=== PATIENT | female | born 1935 | race Caucasian/White ===

== ENCOUNTER 2017-12-28 11:51 | Emergency (ER) | payer OTHER, MEDICARE ==
[~2017-12-28] VITALS: Ht 157.5 cm; Wt 88.6 kg
[~2017-12-28 11:51] MED LIST: ACID REDUCER75 MG PO; ANASTROZOLE1 MG PO; APRISO0.375 GM PO; ARIMIDEX1 MG PO; ASPIR 8181 M1 PO; ATORVASTATIN CA20 MG PO; CENTRUM SILVER1 EAC3 PO; FISH OIL 1,0001 EAC7 PO; FISH OIL 1,2001 EAC4 PO; HYDROCHLOROTHIA25 MG PO; K-DUR10 MEQ PO; LEVOFLOXACIN750 MG PO; LOSARTAN POTASS25 MG PO; MUCINEX600 MG PO; POTASSIUM CHLO10 ME3 PO; PREDNISONE10 MG PO; PROVENTIL HFA6.7 GM IH; SERTRALINE HCL100 MG PO
[2017-12-28 12:38] LABS: BASOPHIL (%) 0.5 % (0-1); EOSINOPHIL (%) 1.3 % (0-5); EOSINOPHIL COUNT 0.1 K/uL (0-0.3); HEMOGLOBIN 11.6 G/DL (11.9-15.5); IMMATURE GRANULOCYTE (%) 0.5 % (0.0-0.7); LYMPHOCYTE (%) 17.2 % (15-42); LYMPHOCYTE COUNT 0.7 K/uL (1.0-2.8); MCH 34.2 PG (29.0-34.0); MCHC 35.2 G/DL (30.0-36.0); MCV 97.3 FL (83-99); MONOCYTE (%) 18.2 % (3-12); MONOCYTE COUNT 0.7 K/uL (0-0.8); NEUTROPHIL (%) 62.3 % (45-76); NEUTROPHIL COUNT 2.5 K/uL (1.8-6.4); PLATELET COUNT 78 K/uL (156-360); RBC DIS.WIDTH-CV 14.3 % (11.8-14.6); RED BLOOD COUNT 3.39 M/uL (3.80-5.20)
[2017-12-28 12:46] LABS: ALBUMIN 2.8 g/dL (3.2-4.8)
[2017-12-28 12:47] LABS: CHLORIDE 102 mEq/L (99-109); SODIUM 143 mEq/L (136-147)
[2017-12-28 12:49] LABS: GLUCOSE 139 mg/dL (70-99); POTASSIUM 3.5 mEq/L (3.7-5.4); TOTAL PROTEIN 5.5 g/dL (6.4-8.3)
[2017-12-28 12:52] LABS: ALKALINE PHOSPHATASE 178 IU/L (3-129)
[2017-12-28 12:53] LABS: CREATININE 0.7 mg/dL (0.6-1.3); GFR ESTIMATE (CALCULATED) > 59 mL/min/
[2017-12-28 12:54] LABS: AST (GOT) 60 IU/L (2-34); UREA NITROGEN (BUN) 10 mg/dL (9-23)
[2017-12-28 12:55] LABS: ALT (GPT) 38 IU/L (3-49)
[2017-12-28 14:57] LABS: APPEARANCE SL.HAZY ((CLEAR)); BILIRUBIN NEGATIVE; BLOOD NEGATIVE; COLOR YELLOW ((YELLOW)); GLUCOSE (STRIP) NEGATIVE; KETONES NEGATIVE; LEUKOCYTES LARGE; NITRITE POSITIVE; PROTEIN (STRIP) NEGATIVE; SPECIFIC GRAVITY 1.005 (1.000-1.030)
[2017-12-28 15:12] LABS: BACTERIA 1+ /HPF; EPITHELIAL CELLS RARE /HPF; HYALINE CASTS 0-5 /LPF; MUCUS NONE SEEN /LPF; UCUL ADDED? YES; WHITE BLOOD CELLS TNTC /HPF (0-5)
[2017-12-28] MEDS ORDERED: CIPRO500 MG PO (15:17)
[2017-12-28 15:26] VITALS: BP 115/57
== END 2017-12-28 15:49 | disposition home or self-care (01) ==
LOC: EME 11:51
PROVIDERS: Emergency Medicine
DX: N39.0 Urinary tract infection, site not specified (principal); I10 Essential (primary) hypertension; K21.9 Gastro-esophageal reflux disease without esophagitis; Z85.3 Personal history of malignant neoplasm of breast; Z90.11 Acquired absence of right breast and nipple; Z87.891 Personal history of nicotine dependence
CPT/HCPCS: 70450; 71045; 80053; 81003; 82140; 85025; 87077; 87086; 87186; 93005; 99281; 99285

== ENCOUNTER 2018-02-04 19:25 | Inpatient (IN) | payer OTHER, MEDICARE ==
[~2018-02-04] VITALS: Ht 157.5 cm; Wt 78.5 kg
[~2018-02-04 19:25] MED LIST changes: +CIPRO500 MG PO; +KLOR-CON M2020 MEQ PO; -POTASSIUM CHLO10 ME3 PO
[2018-02-04 21:08] LABS: HEMATOCRIT 44.1 % (36.0-46.0); HEMOGLOBIN 16.2 G/DL (11.9-15.5); MCH 34.1 PG (29.0-34.0); MCHC 36.7 G/DL (30.0-36.0); MCV 92.8 FL (83-99); PLATELET COUNT 212 K/uL (156-360); RBC DIS.WIDTH-CV 13.6 % (11.8-14.6); RBC DIS.WIDTH-SD 46.4 % (39-53); RED BLOOD COUNT 4.75 M/uL (3.80-5.20); WHITE BLOOD COUNT 12.6 K/uL (4.1-10.2)
[2018-02-04 21:17] LABS: ALBUMIN 3.7 g/dL (3.2-4.8); CHLORIDE 89 mEq/L (99-109); POTASSIUM 5.2 mEq/L (3.7-5.4)
[2018-02-04 21:18] LABS: SODIUM 124 mEq/L (136-147)
[2018-02-04 21:20] LABS: GLUCOSE 113 mg/dL (70-99)
[2018-02-04 21:22] LABS: TOTAL BILIRUBIN 4.1 mg/dL (0.0-1.0)
[2018-02-04 21:23] LABS: ALKALINE PHOSPHATASE 229 IU/L (3-129)
[2018-02-04 21:24] LABS: GFR ESTIMATE (CALCULATED) 57 mL/min/
[2018-02-04 21:25] LABS: AST (GOT) 82 IU/L (2-34); UREA NITROGEN (BUN) 19 mg/dL (9-23)
[2018-02-04 21:26] LABS: ALT (GPT) 72 IU/L (3-49)
[2018-02-04 21:27] LABS: CREATINE KINASE 388 IU/L (1-294)
[2018-02-04 21:29] LABS: TROP-I INTERPRETATION NEGATIVE; TROPONIN-I 0.03 ng/mL (0.0-0.30)
[2018-02-04 22:16] LABS: APPEARANCE CLEAR ((CLEAR)); BILIRUBIN NEGATIVE; BLOOD NEGATIVE; COLOR STRAW ((YELLOW)); GLUCOSE (STRIP) NEGATIVE; KETONES NEGATIVE; LEUKOCYTES NEGATIVE; NITRITE NEGATIVE; PROTEIN (STRIP) NEGATIVE; SPECIFIC GRAVITY 1.008 (1.000-1.030); UROBILINOGEN 0.2 MG/DL (0.2-1.0)
[2018-02-05] MEDS ORDERED: CENTRUM SILVER1 EAC3 PO (01:18)
[2018-02-05] MEDS ORDERED: FLONASE16 G1 BOTH NARES (01:18)
[2018-02-05] MEDS ORDERED: FUROSEMIDE80 MG PO (01:18)
[2018-02-05] MEDS ORDERED: ALDACTONE100 MG PO ×2 (01:20→12:24)
[2018-02-05] MEDS ORDERED: EFFEXOR XR75 MG PO (01:20)
[2018-02-05 05:36] VITALS: BP 127/72
[2018-02-05 06:24] LABS: TROP-I INTERPRETATION NEGATIVE; TROPONIN-I 0.05 ng/mL (0.0-0.30)
[2018-02-05 06:39] LABS: APPEARANCE SL.HAZY ((CLEAR)); BILIRUBIN NEGATIVE; BLOOD NEGATIVE; COLOR YELLOW ((YELLOW)); GLUCOSE (STRIP) NEGATIVE; KETONES NEGATIVE; LEUKOCYTES NEGATIVE; NITRITE NEGATIVE; PROTEIN (STRIP) NEGATIVE
[2018-02-05 06:54] LABS: BACTERIA RARE /HPF; EPITHELIAL CELLS 1+ /HPF; MUCUS TRACE /LPF; RED BLOOD CELLS 0-5 /HPF (0-5); UCUL ADDED? NO; WHITE BLOOD CELLS 0-5 /HPF (0-5)
[2018-02-05 11:07] LABS: BASOPHIL (%) 0.1 % (0-1); EOSINOPHIL (%) 0.8 % (0-5); EOSINOPHIL COUNT 0.1 K/uL (0-0.3); HEMATOCRIT 38.2 % (36.0-46.0); IMMATURE GRANULOCYTE (%) 0.2 % (0.0-0.7); LYMPHOCYTE (%) 18.1 % (15-42); LYMPHOCYTE COUNT 1.5 K/uL (1.0-2.8); MCH 33.3 PG (29.0-34.0); MCHC 35.1 G/DL (30.0-36.0); MCV 94.8 FL (83-99); MONOCYTE (%) 20.7 % (3-12); MONOCYTE COUNT 1.7 K/uL (0-0.8); NEUTROPHIL (%) 60.1 % (45-76); PLATELET COUNT 189 K/uL (156-360); RED BLOOD COUNT 4.03 M/uL (3.80-5.20); WHITE BLOOD COUNT 8.3 K/uL (4.1-10.2)
[2018-02-05 11:10] VITALS: BP 92/47
[2018-02-05 11:11] LABS: HEMOGLOBIN 13.4 G/DL (11.9-15.5)
[2018-02-05 11:21] LABS: ALBUMIN 2.9 G/DL (3.2-4.8); ALKALINE PHOSPHATASE 166 IU/L (3-129); ALT (GPT) 46 IU/L (3-49); AST (GOT) 57 IU/L (2-34); CHLORIDE 94 MEQ/L (99-109); CREATININE 0.9 MG/DL (0.6-1.3); DIRECT BILIRUBIN 1.3 mg/dL (0.0-0.3); GFR ESTIMATE (CALCULATED) > 59 mL/min/; GLUCOSE 126 mg/dL (70-99); MAGNESIUM 1.9 mg/dl (1.3-2.7); SODIUM 125 MEQ/L (136-147); TOTAL BILIRUBIN 3.3 MG/DL (0.0-1.0); TOTAL PROTEIN 5.2 G/DL (6.4-8.3); UREA NITROGEN (BUN) 19 mg/dL (9-23)
[2018-02-05 11:29] LABS: POTASSIUM 4.1 MEQ/L (3.7-5.4)
[2018-02-05] MEDS ORDERED: DONEPEZIL HCL10 MG PO (12:08)
[2018-02-05] MEDS ORDERED: VENLAFAXINE HCL75 M1 PO (12:25)
[2018-02-05 12:38] VITALS: BP 122/44
[2018-02-05 13:31] LABS: TROP-I INTERPRETATION NEGATIVE; TROPONIN-I 0.05 ng/mL (0.0-0.30)
[2018-02-05 15:03] LABS: THYROTROPIN (TSH) 0.74 MIU/L (0.4-5.5)
[2018-02-05 15:10] VITALS: BP 123/52
[2018-02-05 17:13] LABS: CHLORIDE 94 MEQ/L (99-109); CREATININE 0.8 MG/DL (0.6-1.3); GFR ESTIMATE (CALCULATED) > 59 mL/min/; GLUCOSE 103 mg/dL (70-99); POTASSIUM 4.3 MEQ/L (3.7-5.4); SODIUM 126 MEQ/L (136-147); UREA NITROGEN (BUN) 21 mg/dL (9-23)
[2018-02-05 19:18] VITALS: BP 117/58
[2018-02-05 20:22] LABS: CHLORIDE 95 MEQ/L (99-109); CREATININE 0.9 MG/DL (0.6-1.3); GFR ESTIMATE (CALCULATED) > 59 mL/min/; GLUCOSE 136 mg/dL (70-99); SODIUM 126 MEQ/L (136-147); UREA NITROGEN (BUN) 21 mg/dL (9-23)
[2018-02-05 23:25] VITALS: BP 109/61
[2018-02-06 00:45] LABS: CHLORIDE 99 mEq/L (99-109); POTASSIUM 4.4 mEq/L (3.7-5.4); SODIUM 128 mEq/L (136-147)
[2018-02-06 00:48] LABS: GLUCOSE 96 mg/dL (70-99)
[2018-02-06 00:51] LABS: CREATININE 0.8 mg/dL (0.6-1.3); GFR ESTIMATE (CALCULATED) > 59 mL/min/
[2018-02-06 00:52] LABS: UREA NITROGEN (BUN) 19 mg/dL (9-23)
[2018-02-06 03:41] VITALS: BP 119/54
[2018-02-06 05:41] LABS: BASOPHIL (%) 0.1 % (0-1); EOSINOPHIL (%) 1.4 % (0-5); EOSINOPHIL COUNT 0.1 K/uL (0-0.3); HEMATOCRIT 36.5 % (36.0-46.0); HEMOGLOBIN 13.1 G/DL (11.9-15.5); IMMATURE GRANULOCYTE (%) 0.4 % (0.0-0.7); LYMPHOCYTE (%) 19.2 % (15-42); LYMPHOCYTE COUNT 1.5 K/uL (1.0-2.8); MCH 33.9 PG (29.0-34.0); MCHC 35.9 G/DL (30.0-36.0); MCV 94.6 FL (83-99); MONOCYTE (%) 18.3 % (3-12); MONOCYTE COUNT 1.4 K/uL (0-0.8); NEUTROPHIL (%) 60.6 % (45-76); NEUTROPHIL COUNT 4.7 K/uL (1.8-6.4); PLATELET COUNT 151 K/uL (156-360); RBC DIS.WIDTH-SD 48.3 % (39-53); RED BLOOD COUNT 3.86 M/uL (3.80-5.20); WHITE BLOOD COUNT 7.7 K/uL (4.1-10.2)
[2018-02-06 05:50] LABS: INTER. NORMALIZED RATIO 1.4
[2018-02-06 05:53] LABS: PTT 33.6 SEC (25-37)
[2018-02-06 05:59] LABS: CHLORIDE 97 MEQ/L (99-109); CREATININE 0.8 MG/DL (0.6-1.3); GFR ESTIMATE (CALCULATED) > 59 mL/min/; GLUCOSE 103 mg/dL (70-99); SODIUM 129 MEQ/L (136-147); UREA NITROGEN (BUN) 20 mg/dL (9-23)
[2018-02-06 06:00] LABS: ALBUMIN 2.6 G/DL (3.2-4.8); ALKALINE PHOSPHATASE 147 IU/L (3-129); ALT (GPT) 49 IU/L (3-49); AST (GOT) 58 IU/L (2-34); DIRECT BILIRUBIN 1.1 mg/dL (0.0-0.3); TOTAL BILIRUBIN 3.2 MG/DL (0.0-1.0); TOTAL PROTEIN 4.9 G/DL (6.4-8.3)
[2018-02-06 07:09] VITALS: BP 110/57
[2018-02-06 08:17] LABS: CHLORIDE 99 MEQ/L (99-109); CREATININE 0.8 MG/DL (0.6-1.3); GFR ESTIMATE (CALCULATED) > 59 mL/min/; GLUCOSE 120 mg/dL (70-99); POTASSIUM 3.9 MEQ/L (3.7-5.4); SODIUM 128 MEQ/L (136-147); UREA NITROGEN (BUN) 19 mg/dL (9-23)
[2018-02-06 10:16] LABS: HEPATITIS B SURFACE ANTIGEN Nonreactive
[2018-02-06 10:17] LABS: HEPATITIS C ANTIBODY Nonreactive
[2018-02-06 10:18] LABS: ANTI-HEPATITIS A VIRUS (IGM) Nonreactive; ANTI-HEPATITIS B CORE (IGM) Nonreactive
[2018-02-06 11:03] VITALS: BP 116/53
[2018-02-06 15:11] VITALS: BP 108/78
[2018-02-06 19:37] VITALS: BP 126/82
[2018-02-06 23:45] VITALS: BP 119/65
[2018-02-07 03:47] VITALS: BP 110/69
[2018-02-07 06:06] LABS: BASOPHIL (%) 0.1 % (0-1); EOSINOPHIL (%) 0.5 % (0-5); HEMATOCRIT 36.8 % (36.0-46.0); HEMOGLOBIN 12.7 G/DL (11.9-15.5); IMMATURE GRANULOCYTE (%) 0.1 % (0.0-0.7); LYMPHOCYTE (%) 16.2 % (15-42); LYMPHOCYTE COUNT 1.2 K/uL (1.0-2.8); MCH 33.7 PG (29.0-34.0); MCHC 34.5 G/DL (30.0-36.0); MCV 97.6 FL (83-99); MONOCYTE (%) 18.7 % (3-12); MONOCYTE COUNT 1.4 K/uL (0-0.8); NEUTROPHIL (%) 64.4 % (45-76); NEUTROPHIL COUNT 4.9 K/uL (1.8-6.4); RBC DIS.WIDTH-CV 14.2 % (11.8-14.6); RBC DIS.WIDTH-SD 51.6 % (39-53); RED BLOOD COUNT 3.77 M/uL (3.80-5.20); WHITE BLOOD COUNT 7.6 K/uL (4.1-10.2)
[2018-02-07 06:12] LABS: ALBUMIN 2.8 G/DL (3.2-4.8); ALKALINE PHOSPHATASE 161 IU/L (3-129); ALT (GPT) 46 IU/L (3-49); AST (GOT) 48 IU/L (2-34); CHLORIDE 104 MEQ/L (99-109); CREATININE 0.7 MG/DL (0.6-1.3); GFR ESTIMATE (CALCULATED) > 59 mL/min/; GLUCOSE 105 mg/dL (70-99); POTASSIUM 3.6 MEQ/L (3.7-5.4); SODIUM 134 MEQ/L (136-147); TOTAL BILIRUBIN 3.5 MG/DL (0.0-1.0); UREA NITROGEN (BUN) 18 mg/dL (9-23)
[2018-02-07 06:28] LABS: PLAT.SUFFICIENCY DECREASED
[2018-02-07 06:36] LABS: PLATELET COUNT 99 K/uL (156-360)
[2018-02-07 07:17] VITALS: BP 117/62
[2018-02-07 11:08] VITALS: BP 135/55
[2018-02-07 15:55] VITALS: BP 131/64
[2018-02-07 19:52] VITALS: BP 144/67
[2018-02-08 00:21] VITALS: BP 125/62
[2018-02-08 04:43] VITALS: BP 120/61
[2018-02-08 07:38] VITALS: BP 122/58
[2018-02-08 09:10] LABS: BASOPHIL (%) 0.3 % (0-1); EOSINOPHIL (%) 2.8 % (0-5); EOSINOPHIL COUNT 0.2 K/uL (0-0.3); HEMATOCRIT 35.5 % (36.0-46.0); HEMOGLOBIN 12.5 G/DL (11.9-15.5); IMMATURE GRANULOCYTE (%) 0.2 % (0.0-0.7); LYMPHOCYTE (%) 23.1 % (15-42); LYMPHOCYTE COUNT 1.3 K/uL (1.0-2.8); MCH 33.9 PG (29.0-34.0); MCHC 35.2 G/DL (30.0-36.0); MCV 96.2 FL (83-99); MONOCYTE (%) 19.3 % (3-12); MONOCYTE COUNT 1.1 K/uL (0-0.8); NEUTROPHIL (%) 54.3 % (45-76); NEUTROPHIL COUNT 3.1 K/uL (1.8-6.4); PLATELET COUNT 85 K/uL (156-360); RBC DIS.WIDTH-CV 14.1 % (11.8-14.6); RBC DIS.WIDTH-SD 49.5 % (39-53); RED BLOOD COUNT 3.69 M/uL (3.80-5.20); WHITE BLOOD COUNT 5.8 K/uL (4.1-10.2)
[2018-02-08 09:34] LABS: CHLORIDE 105 MEQ/L (99-109); CREATININE 0.6 MG/DL (0.6-1.3); GFR ESTIMATE (CALCULATED) > 59 mL/min/; GLUCOSE 98 mg/dL (70-99); SODIUM 134 MEQ/L (136-147); UREA NITROGEN (BUN) 15 mg/dL (9-23)
[2018-02-08] MEDS ORDERED: XIFAXAN550 MG PO (11:27)
[2018-02-08] MEDS ORDERED: SPIRONOLACTONE25 MG PO (11:27)
[2018-02-08] MEDS ORDERED: Chronulac,Cephulac,E PO (11:27)
[2018-02-08 11:42] VITALS: BP 129/70
[2018-02-08 16:12] VITALS: BP 136/66
[2018-02-08 19:48] VITALS: BP 132/67
[2018-02-09 00:31] VITALS: BP 110/58
[2018-02-09 07:37] VITALS: BP 110/54
[2018-02-09] MEDS ORDERED: LASIX20 MG PO (11:44)
== END 2018-02-09 14:49 | DRG 441 ==
LOC: EME 19:25 → EDOF 02-05 04:26 → 5SOUTH 02-05 04:26 → ENPENDDIS 02-09 12:01 → 5SOUTH 02-09 14:49
PROVIDERS: Emergency Medicine; Hospitalist; Physician Assistant
DX: K72.90 Hepatic failure, unspecified without coma (principal); E87.1 Hypo-osmolality and hyponatremia; G93.41 Metabolic encephalopathy; D75.1 Secondary polycythemia; K74.60 Unspecified cirrhosis of liver; K76.6 Portal hypertension; R18.8 Other ascites; E86.0 Dehydration; E83.52 Hypercalcemia; E87.2 Acidosis; F03.90 Unspecified dementia, unspecified severity, without behavioral disturbance, psychotic disturbance, mood disturbance, and anxiety; E78.00 Pure hypercholesterolemia, unspecified; E78.5 Hyperlipidemia, unspecified; I10 Essential (primary) hypertension; K21.9 Gastro-esophageal reflux disease without esophagitis; K51.90 Ulcerative colitis, unspecified, without complications; M54.9 Dorsalgia, unspecified; Z85.3 Personal history of malignant neoplasm of breast; F32.9 Major depressive disorder, single episode, unspecified; Z90.11 Acquired absence of right breast and nipple; Z92.3 Personal history of irradiation; Z87.891 Personal history of nicotine dependence; Z91.81 History of falling
CPT/HCPCS: 70450; 71046; 72125; 74176; 76705; 80048; 80048 91; 80053; 80074; 80076; 81003; 82140; 82533 91; 82550; 83605; 83735; 83930; 83935; 84300; 84443; 84484; 85025; 85027; 85610; 85730; 87040; 87086; 93005; 99281; 99285; J1644; J7030